=== PATIENT | male | born 1985 | race Hispanic/Latino ===

== ENCOUNTER 2022-02-05 08:53 | Emergency (ER) | payer SELFPAY ==
[2022-02-05] MEDS ORDERED: Bacitracin 1 PK ONE (09:12)
[2022-02-05] MEDS ORDERED: Lidocaine 1% w/Epinephrine 1:100K 20 ML VIAL ONE (09:12)
[2022-02-05] MEDS ORDERED: Boostrix 0.5 ML (Tdap) VIAL ONE (09:12)
[2022-02-05] MEDS ORDERED: Ketorolac Tromethamine 30 MG/ML VIAL ONE (10:00)
[2022-02-05] MEDS ORDERED: Morphine 4 MG/ML VIAL ONE (10:00)
== END 2022-02-05 11:25 | disposition home or self-care (01) ==
LOC: ERS 08:53
DX: S02.831A Fracture of medial orbital wall, right side, initial encounter for closed fracture (principal); S03.2XXA Dislocation of tooth, initial encounter; S02.2XXA Fracture of nasal bones, initial encounter for closed fracture; S02.42XA Fracture of alveolus of maxilla, initial encounter for closed fracture; S01.111A Laceration without foreign body of right eyelid and periocular area, initial encounter; S01.511A Laceration without foreign body of lip, initial encounter; Z79.84 Long term (current) use of oral hypoglycemic drugs; W11.XXXA Fall on and from ladder, initial encounter
CPT/HCPCS: 12011; 70450; 70486; 72125; 90471; 90715; 96372; J1885; J2270